=== PATIENT | female | born 1960 | race African-American/Black ===

== ENCOUNTER 2020-06-15 10:24 | Outpatient (CLI) | payer MEDICAID ==
[~2020-06-15] VITALS: Ht 157.5 cm; Wt 50.3 kg
[2020-06-15 10:46] VITALS: BP 131/71
--- NOTE | 2020-06-15 11:29 | Consultation ---
DATE OF CONSULTATION: 06/15/2020 CHIEF COMPLAINT: Referral for screening colonoscopy. PAST MEDICAL HISTORY: 1. GERD. 2. Hypercholesteremia. 3. Osteoporosis. PAST SURGICAL HISTORY: Hernia surgery. MEDICATIONS: Please see medication reconciliation. ALLERGIES: To penicillin and Flagyl. FAMILY HISTORY: Sister had kidney cancer. SOCIAL HISTORY: The patient drinks socially. Smokes 5 to 10 cigarettes per day. Denies any IV drug abuse. PHYSICAL EXAMINATION: VITAL SIGNS: Temperature 97.1, blood pressure is 131/71, pulse 60, respirations 20. Height is 5 feet 2 inches, weight is 111. HEENT: Normocephalic and atraumatic. Sclerae anicteric. NECK: Supple. No evidence of obvious lymphadenopathy. CARDIAC: Regular rate and rhythm. Plus S1 and S2. LUNGS: Clear to auscultation bilaterally. ABDOMEN: Positive bowel sounds. Soft and nontender. No rebound. No guarding. No peritoneal sign. EXTREMITIES: No cyanosis, no clubbing, no edema. ASSESSMENT AND PLAN: This is a 60-year-old female referred for screening colonoscopy. The patient was given instruction for colonoscopy. Risks and benefits of procedure was explained to her. We will schedule her as soon as authorization is obtained. Naeem Blanco M.D. DR: Jose JOB#: [id number] CC:
== END 2020-06-15 12:24 | disposition home or self-care (01) ==
LOC: PAN 10:24
DX: K21.9 Gastro-esophageal reflux disease without esophagitis (principal); E78.00 Pure hypercholesterolemia, unspecified; M81.0 Age-related osteoporosis without current pathological fracture; Z88.0 Allergy status to penicillin; Z80.51 Family history of malignant neoplasm of kidney; F17.210 Nicotine dependence, cigarettes, uncomplicated
CPT/HCPCS: 99203